=== PATIENT | male | born 1980 | race Two or more races ===

== ENCOUNTER 2025-03-14 21:15 | Emergency (ER) | payer MEDICAID, SELFPAY ==
[2025-03-14 21:25] VITALS: BP 138/80; PULSE 128; RESP 20; TEMP 36.9; O2SAT 96
--- NOTE | 2025-03-14 21:59 | PC.NURSE ---
provider yusuf went to see pt he did not want to be seen wanted to call mom then started yelling he ids bleeding small laceration to head pt would not state how it happen then he could not say if he wanted to be treated he said he wants to call mom, asked multiple times if he wanted to be treated he kept saying he just wants to call mom would not agree with tx
--- NOTE | 2025-03-14 21:59 | PD.EDRME ---
Rapid Medical Screening Exam E Arrival date/time: 03/14/25 21:15 Chief Complaint: Fall Vital signs: Vital Signs Temperature 98.4 F 03/14/25 21:25 Pulse Rate 128 H 03/14/25 21:25 Respiratory Rate 20 03/14/25 21:25 Blood Pressure 138/80 H 03/14/25 21:25 Pulse Oximetry (%) 96 03/14/25 21:25 Oxygen Delivery Method Room Air 03/14/25 21:25 RME Narrative: Brought in by EMS for fall, head injury at home. +etoh Exam: Abrasion/small hematoma mid upper forehead. Dried blood bilateral nares, no current epistaxis Clinical Impression: Head injury, fall, nosebleed
--- NOTE | 2025-03-14 22:45 | XR_ITS ---
Examination: CT maxillofacial, without intravenous contrast. 2-D sagittal reconstructions. 3-D reconstructions. Date and time of exam: March 14, 2025, 1110 hours INDICATIONS: Patient fell today with injury to the face, facial pain CTDI: vol (mGy): 14.61 DLP: (mGycm): 304 Technique: Multiple axial images of maxillofacial region, 3.0 mm slice thickness. 2-D sagittal and coronal reconstructions. 3-D reconstructions. Low dose protocols were performed. One or more of the following dose reduction techniques were used; automated exposure control, adjustment of the mA and/or KV according to patient size, use of iterative reconstruction technique. Findings: Frontal bones frontal sinuses intact (Intact No nasal bone fracture No depression zygomatic arches Pterygoid plates maxilla and the mandible intact IMPRESSION: No acute facial fracture.
--- NOTE | 2025-03-14 22:45 | XR_ITS ---
Examination: CT brain head without contrast. 2-D sagittal coronal reconstructions Date and time of exam: March 14, 2025, 1111 hours INDICATIONS: Patient fell today with injury to the head, head pain. CTDI: vol (mGy): 49.20 DLP: (mGycm): 1024 Technique: Multiple CT axial sections of the brain have been obtained, 5 mm slice thickness. Contrast has not been administered. 2-D sagittal, coronal reconstructions have been obtained Low dose protocols were performed. One or more of the following dose reduction techniques were used; automated exposure control, adjustment of the mA and/or KV according to patient size, use of iterative reconstruction technique. Findings: No significant ventricular enlargement. Intra-axial or extra-axial hemorrhage density is not seen. No mass effect or midline shift Basal cisterns are not remarkable. Fourth ventricle is midline. Cranial vault intact. Impression: Negative for acute hemorrhage, mass effect or midline shift
[2025-03-14] MEDS: ACETAMINOPHEN 500 MG TABLET 1000 MG PO (22:51)
--- NOTE | 2025-03-15 00:29 | PC.NURSE ---
pt father came to pick him up per [facility] pt left with father
== END 2025-03-15 00:29 | disposition left against medical advice (07) ==
LOC: SERX 03-15 00:02
PROVIDERS: Emergency Provider Emergency Medicine; PCP Family Medicine
DX: Z53.21 Procedure and treatment not carried out due to patient leaving prior to being seen by health care provider (principal)
CPT/HCPCS: 70450; 70486; 99282; A9270